=== PATIENT | male | born 1980 | race Caucasian/White ===

== ENCOUNTER 2018-11-13 06:35 | Emergency (ER) | payer BC ==
[2018-11-13 08:14] LABS: ABSOLUTE BASOPHILS # (AUTO) 0.1 10^3/uL (0.0-0.2); ABSOLUTE EOSINOPHILS # (AUTO) 0.2 10^3/uL (0.0-0.6); ABSOLUTE LYMPHOCYTES (AUTO) 1.2 10^3/uL (0.5-4.7); ABSOLUTE MONOCYTES (AUTO) 0.5 10^3/uL (0.1-1.4); ABSOLUTE NEUT (AUTO) 4.9 10^3/uL (1.7-8.2); BASOPHILS % (AUTO) 0.8 % (0-2); EOSINOPHILS % (AUTO) 2.3 % (0-6); HEMATOCRIT 41.8 % (37.9-51.0); LYMPHOCYTES % (AUTO) 17.4 % (13-45); MEAN CORPUSCULAR HEMOGLOBIN 34.1 pg (27.0-33.4); MEAN CORPUSCULAR HGB CONC 35.9 g/dL (32.0-36.0); MEAN CORPUSCULAR VOLUME 95 fl (80-97); MONOCYTES % (AUTO) 6.8 % (3-13); PLATELET COUNT 239 10^3/uL (150-450); RED BLOOD COUNT 4.41 10^6/uL (4.35-5.55); RED CELL DISTRIBUTION WIDTH 12.8 % (11.5-14.0); SEGMENTED NEUTROPHILS % (AUTO) 72.7 % (42-78); TOTAL CELLS COUNTED % (AUTO) 100 %; WHITE BLOOD COUNT 6.7 10^3/uL (4.0-10.5)
[2018-11-13 08:19] LABS: ALANINE AMINOTRANSFERASE 117 U/L (21-72); ALBUMIN 4.9 g/dL (3.5-5.0); ALKALINE PHOSPHATASE 85 U/L (38-126); ANION GAP 9 (5-19); ASPARTATE AMINO TRANSFERASE 58 U/L (17-59); BILIRUBIN,DIRECT 0.2 mg/dL (0.0-0.4); BILIRUBIN,TOTAL 0.6 mg/dL (0.2-1.3); BLOOD UREA NITROGEN 15 mg/dL (7-20); CARBON DIOXIDE 25 mmol/L (22-30); CHLORIDE 106 mmol/L (98-107); GLUCOSE 115 mg/dL (75-110); LIPASE 64.4 U/L (23-300); POTASSIUM 4.4 mmol/L (3.6-5.0); SODIUM 140.1 mmol/L (137-145); TOTAL PROTEIN 7.9 g/dL (6.3-8.2)
[2018-11-13] MEDS ORDERED: ONDANSETRON 4 MG TAB.RAPDIS PO ONE (09:20)
--- NOTE | 2018-11-13 09:20 | ER Document Report ---
ED General - General Chief Complaint: High Blood Pressure Stated Complaint: BLOOD PRESSURE PROBLEM Time Seen by Provider: 11/13/18 06:59 - HPI Patient complains to provider of: Nausea elevated blood pressure Notes: Patient coming in for evaluation of elevated blood pressure nausea. Patient states feeling well for the last 48 hours. Patient is to take his blood pressure at home and was elevated. Patient denies a history of blood pressure does state that he does smoke. Patient states since arrival here to the ER he has been feeling much better. Denies any sick contacts denies any recent antibiotics denies any fevers chills diarrhea. - Related Data Allergies/Adverse Reactions: No Known Drug Allergies Allergy (Verified 11/13/18 06:42) Past Medical History - Social History Smoking Status: Former Smoker Chew tobacco use (# tins/day): No Frequency of alcohol use: daily Drug Abuse: None Family History: Reviewed & Not Pertinent Patient has suicidal ideation: No Patient has homicidal ideation: No Renal/ Medical History: Denies: Hx Peritoneal Dialysis Past Surgical History: Reports: Hx Orthopedic Surgery Review of Systems - Review of Systems Constitutional: Other - Elevated blood pressure EENT: No symptoms reported Cardiovascular: No symptoms reported Respiratory: No symptoms reported Gastrointestinal: Nausea Genitourinary: No symptoms reported Male Genitourinary: No symptoms reported Musculoskeletal: No symptoms reported Skin: No symptoms reported Hematologic/Lymphatic: No symptoms reported Neurological/Psychological: No symptoms reported -: Yes All other systems reviewed and negative Physical Exam - Vital signs Vitals: Temp Pulse Resp BP Pulse Ox 98.2 F 85 20 153/86 H 98 11/13/18 06:41 11/13/18 06:41 11/13/18 06:41 11/13/18 06:41 11/13/18 06:41 Interpretation: Normal - General General appearance: Appears well, Alert - HEENT Head: Normocephalic, Atraumatic Eyes: Normal Pupils: PERRL - Respiratory Respiratory status: No respiratory distress Chest status: Nontender Breath sounds: Normal Chest palpation: Normal - Cardiovascular Rhythm: Regular Heart sounds: Normal auscultation Murmur: No - Abdominal Inspection: Normal Distension: No distension Bowel sounds: Normal Tenderness: Nontender Organomegaly: No organomegaly - Back Back: Normal, Nontender - Extremities General upper extremity: Normal inspection, Nontender, Normal color, Normal ROM, Normal temperature General lower extremity: Normal inspection, Nontender, Normal color, Normal ROM, Normal temperature, Normal weight bearing. No: Miroslava's sign - Neurological Neuro grossly intact: Yes Cognition: Normal Orientation: AAOx4 Erica Coma Scale Eye Opening: Spontaneous [place] Coma Scale Verbal: Oriented Erica Coma Scale Motor: Obeys Commands Erica Coma Scale Total: 15 Speech: Normal Motor strength normal: LUE, RUE, LLE, RLE Sensory: Normal - Psychological Associated symptoms: Normal affect, Normal mood - Skin Skin Temperature: Warm Skin Moisture: Dry Skin Color: Normal Course - Re-evaluation Re-evalutation: 11/13/18 15:44 Laboratory studies not show any critical pathology. The explained to the pat ient at this time more likely is a viral illness which can also cause L of vision of his blood pressure recommend treatment of his symptoms follow with primary care physician for further evaluation of his blood pressure issues. Patient is understanding will be discharged home. - Vital Signs Vital signs: Temp Pulse Resp BP Pulse Ox 98.3 F 68 18 139/88 H 96 11/13/18 09:29 11/13/18 09:29 11/13/18 09:29 11/13/18 09:29 11/13/18 09:29 - Laboratory Result Diagrams: 11/13/18 07:57 11/13/18 07:57 Laboratory results interpreted by me: 11/13/18 11/13/18 07:57 07:57 MCH 34.1 H Glucose 115 H ALT 117 H Discharge - Discharge Clinical Impression: Elevated blood pressure reading Nausea & vomiting Qualifiers: Vomiting type: unspecified Vomiting Intractability: non-intractable Qualified Code(s): R11.2 - Nausea with vomiting, unspecified Condition: Good Disposition: HOME, SELF-CARE Instructions: Gastroenteritis (adult) ([facility]), High Blood Pressure ([facility]), Nausea or Vomiting, Nonspecific ([facility]) Additional Instructions: Your laboratory studies today do not show any critical pathology. Would recommend that you follow-up with your primary care physician for further evaluation of your elevated blood pressure. Do believe your elevated blood pressure today is due to the fact that you are currently sick with a viral etiology. I would recommend taking Zofran or Phenergan for your nausea and vomiting please stick to a bland diet avoiding foods that are fatty or greasy or fried. Return to ER symptoms worsen. Prescriptions: Ibuprofen [Motrin 600 mg Tablet] 600 mg PO Q8HP PRN #21 tablet PRN Reason: Ondansetron [Zofran Odt 4 mg Tablet] 1 - 2 tab PO Q4H PRN #30 tab.rapdis PRN Reason: For Nausea/Vomiting Promethazine HCl [Phenergan 25 mg Tablet] 25 mg PO Q6 #30 tablet Forms: Return to Work
[2018-11-13 09:32] VITALS: BP 139/88
== END 2018-11-13 09:39 | disposition home or self-care (01) ==
LOC: ER 06:35
DX: R03.0 Elevated blood-pressure reading, without diagnosis of hypertension (principal); R11.2 Nausea with vomiting, unspecified
CPT/HCPCS: 99283; 36415; 83690; 85025; 80053; S0119